=== PATIENT | female | born 1990 | race Two or more races ===

== ENCOUNTER 2020-01-28 13:16 | Emergency (ER) | payer MEDICAID ==
[~2020-01-28] VITALS: Ht 167.6 cm; Wt 81.6 kg
--- NOTE | 2020-01-28 14:02 | NUR ---
BIBS TO ER BED 7. AAOX4. NOT IN RESP DISTRESS, BREATHING EVEN AND UNLABORED. AMBULATORY. CAME IN FOR GEN BODY ACHE, CHILLS, FEVER AND NON PRODUCTIVE COUGH SINCE YESTERDAY, [place]. AWAITING MD FOR EVAL.
[2020-01-28] MEDS ORDERED: ACETAMINOPHEN 325 MG TABLET ONE (14:08)
[2020-01-28] MEDS ORDERED: ACETAMINOPHEN 325 MG TABLET PO ONE (14:30)
--- NOTE | 2020-01-28 14:56 | NUR ---
urine sent to lab
[2020-01-28 15:08] LABS: APPEARANCE,URINE Clear (CLEAR); BILIRUBIN,URINE Negative (NEGATIVE); BLOOD, URINE Small Ery/uL (NEGATIVE); COLOR,URINE Yellow (YELLOW); KETONES,URINE Trace (NEGATIVE); LEUKOCYTE ESTERASE ,URINE Negative (NEGATIVE); NITRITE, URINE Negative (NEGATIVE); PH,URINE 6.5 (5.0-8.0); PROTEIN,URINE Negative (NEGATIVE); UGLUCOSE Negative (NEGATIVE); UROBILINOGEN,URINE 0.2 EU/dL (0.2)
[2020-01-28 15:11] LABS: BACTERIA,URINE Rare /HPF (None Seen); RBC,URINE 0-2 /HPF (0-2); SQUAMOUS EPITHELIAL CELL,UR Few /HPF (None Seen); WBC,URINE NONE SEEN /HPF (0-3)
--- NOTE | 2020-01-28 15:23 | NUR ---
XRAY WAS AT THE BEDSIDE
--- NOTE | 2020-01-28 16:35 | NUR ---
Patient discharged to home in stable condition. Written and verbal after care instructions given. Patient verbalizes understanding of instruction. Pt ambulatory with a steady gait
[2020-01-28 16:36] VITALS: BP 121/76
== END 2020-01-28 16:37 | disposition home or self-care (01) ==
LOC: ER 13:20
DX: B34.9 Viral infection, unspecified (principal)
CPT/HCPCS: 71045-TC; 81000-TC; 84703-TC